=== PATIENT | female | born 2005 | race Caucasian/White ===

== ENCOUNTER 2025-01-19 06:49 | Emergency (ER) | payer BC, SELFPAY ==
--- NOTE | ~2025-01-19 | XR_ITS ---
EXAMINATION: XR ankle LT min 3V DATE: 01/19/2025 08:31 INDICATION: Left ankle injury. Fall. TECHNIQUE: 4 views of left ankle were obtained. COMPARISON: None. FINDINGS: Alignment is normal. No fracture. Joint spaces are normal. IMPRESSION: 1. Normal left ankle. Reviewed, dictated and finalized at location A. IMPRESSION: 1. Normal left ankle.
[2025-01-19 07:02] VITALS: BP 109/79; PULSE 98; RESP 17; TEMP 36.2; O2SAT 100
[2025-01-19 09:13] VITALS: BP 125/85; PULSE 92; RESP 14; O2SAT 100
--- OUTSIDE RECORDS SUMMARY | 2025-01-19 10:12 | XMS_ITS | Clinical Summary ---
Author Organization [facility] Address [address] [place] [address] Phone Care Team Providers Care Solar Designer/Installer Name Role Phone Thania Morales MD Primary Care Provider [phone] Allergies Active Allergy Reactions Criticality Noted Date Comments Amoxicillin Rash Medium 01/25/2017 Sulfa Antibiotics Hives 03/14/2015 Medications escitalopram (LEXAPRO) 20 MG Tablet 1 Active hydrOXYzine (VISTARIL) 25 MG Capsule Take 1 Capsule by mouth 4 times daily as needed for Anxiety. 30 Capsule 3 Active Additional Information Patient not taking.Reported on 06/19/2024 Active Problems No known active problems Immunizations Immunization Administration Dates Next Due Covid-19, Mrna, Lnp-s, Pf, 3 0 Mcg/0.3 Ml Dose ([employer]) 05/30/2021,05/08/2021 DTAP VACCINE 09/19/2006 DTAP-IPV 06/03/2010 DTAP/HEPB/IPV Vaccine 2005,2005,07/24 Hepatitis A, Pediatric, Unsp ecified Formulation 06/29/2007,12/19/2006 Hepatitis B Vaccine, Pediatric/adolescent 2005 Hib Vaccine,unspecified Formulation 08/25,2005,2005,08/10 Human Papillomavirus (HPV) 9 -valent Vaccine 10/08/2020,06/01/2019 Influenza, Injectable, Quadrivalent 10/31/2015 MMRV 06/03/2010,06/14/2006 Meningococcal Vaccine 07/20/2016 Pneumococcal Vaccine Peds - 7 Valent ,2005,2005,08/10 TDAP Vaccine 07/20/2016 Social History Tobacco Use Types Packs/Day Years Used Date Smoking Tobacco: Never Smokeless Tobacco: Never Tobacco Cessation:Counseling Given: Not Answered Alcohol Use Standard Drinks/Week Comments Never 0 (1 standard drink = 0.6 oz pur e alcohol) Sexually Active Control Partners Comments Not Currently Comments No Sex and Gender Information Value Date Recorded Sex Assigned at Not on file Legal Sex Female 11:26 PM CDT Gender Identity Not on file Sexual Orientation Not on file Last Filed Vital Signs Vital Sign Reading Time Taken Comments Blood Pressure 118/74 06/19/2024 5:55 PM CDT Pulse 108 06/19/2024 5:55 PM CDT Temperature 36.8 C (98.2 F) 06/19/2024 5:55 PM CDT Respiratory Rate 18 06/19/2024 5:55 PM CDT Oxygen Saturation 96% 06/19/2024 5:55 PM CDT Inhaled Oxygen Concentration - - Weight 79.4 kg (175 lb) 02/01/2023 11:32 AM CDT Height 165.1 cm (5' 5 ) 11/05/2022 6:16 PM CARVER HAND Body Mass Index - - Plan of Treatment Health Maintenance Due Date Last Done Comments Hepatitis C Virus (HCV) Screening 2005 Influenza Immunization (#1) 2024 08/18/2023, 0 10/31/2015 SARS-COV-2 Immunization ( season) 2024 05/30/2021, 05/08/2021 DTaP/Tdap/Td Immunization (7 - Td or Tdap) 07/20/2026 07/20/2016, 06/03/2010, 09/19/2006, Additional history exists Respiratory Syncytial Virus (RSV) Immunization (Adult) (1 - 1-dose 75+ series) 2080 Hepatitis B Immunization Completed 006, 2005, 2005, Additional history exists Pneumococcal Immunization Combined Aged Out 06/14/2006, 2005, 2005, Additional history exists No longer eligible based on patient's age to complete this topic Hepatitis A Immunization Discontinued 06/29/2007, 11/25 Measles Mumps Rubella (MMR) Immunization Discontinued 06/03/2010, 06/14/2006 Polio (IPV) Immunization Discontinued 010, 2005, 2005, Additional history exists Varicella Immunization Discontinued 06/03/2010, 2005 Human Papillomavirus (HPV) Immunization Completed 10/08/2020, 06/01/2019 Meningococcal Immunization (ACWY) Completed 10/09/2021, 07/20/2016 Meningococcal B Immunization Completed 04/29/2023, 03/15/2023 Rotavirus Immunization Aged Out No lo nger eligible based on patient's age [place] [id number] [address] [facility] [place] [id number] [place] Care Teams Solar Designer/Installer Relationship Specialty Start Date End Date Thania Morales MD [address] [place] [address] [place] [phone] PCP - General Pediatrics 06/16/21
--- OUTSIDE RECORDS SUMMARY | 2025-01-19 10:12 | XMS_ITS | Continuity of Care Document ---
Author Organization [facility] Address [address] [place] [address] Phone Care Team Providers Care Crane Follower Name Role Phone Cristina PT, CMPT, Bryan Unavailable Delmi vailable Procedures Procedure Date THERAPEUTIC EXERCISES MANUAL THERAPY PT EVALUATION THERAPEUTIC EXERCISES Advance Directives Directive Yes / No Effective Date File Name No Information Encounters Encounter Description Practice Location Reason(s) For Visit Diagnoses Date Provider Providers Copied on Encounter [facility], [address] [address], [place], [place], [id number], tel:[phone] Gómez No Information 6 Daljit Adams. [address] [facility], [place], [facility] [place], [place]. tel: [phone] [facility], [address], [place], [place], [id number], tel:[phone] Gómez Pelvic muscle wastingWeaknessBiome chanical lesion, unspecifiedOther specified disorders of urinary systemOther constipation 6 Daljit Adams. [address] [facility], [address], [place], [facility] [place], . tel:[phone] Family History Family Member Type Diagnosis Age At Onset No Information Payers Payer name Insurance type Covered green party ID Authorshawn shelby(s) [facility] [id number] [facility] 2016 Social History Type Description Quantity Date Captured Comments Sex Female Smoking Status No Information Chief Complaint And Reason For Visit No Information Reason For Referral Reason For Referral No Information History Of Present Illness Encounter Date Complaint History Of Prese nt Illness No Information Functional Status Date Functional Assessmen t No Information Instructions Date Instruction Additional Infor mation No Information Assessments Type Assessment Date No Information Patient Care Teams Name Effective Dates (start - stop) Status Members No Information
--- OUTSIDE RECORDS SUMMARY | 2025-01-19 10:12 | XMS_ITS | Clinical Summary ---
Author Organization [facility] Address [address] [place] [address] Care Team Providers Care Soccer Coach Name Role Phone Estela Copeland MD Primary Care Provider [phone] Source Comments [facility],non-owned Affiliates and Associated Physician Practices is amultiple site organization consisting of ambulatory clinics and hospital sitesin [place], [place], [place] and [place]. This disclosure is being madepursuant to the Care Everywhere program and may not contain all information available regarding this patient. Last updated 18.[facility] Allergies Active Allergy Reactions Criticality Noted Date Comments Amoxicillin Rash Medium 01/25/2017 Sulfa Drugs Urticaria 03/14/2015 Medications * Be aware that medications may not be up to date on this document. Alwaysverify current medications with the patient. Medication Sig Dispensed Refills Start Date End Date Status polyethylene glycol 3350 (MIRALAX) powder Take 17 g by mouth 2 times daily Mix with 8-10 oz of water. 850 g 2 01/26/2017 Active nitrofurantoin monohyd macro crystals (MACROBID) 100 MG capsule Take 1 Cap by mouth 2 times daily with morning and evening meal 14 Cap 01/26/2017 Active polyethylene glycol 3350 (MIRALAX) powder Take 17 g by mouth once daily as needed for Constipation Active Lactobacillus Rhamnosus, GG, (CULTURELLE PO) Take 1 Cap by mouth once daily Active Active Problems Problem Noted Date Diagnosed Date Chronic constipation 01/25/2017 Assessment & Plan (01/26/2017 1:16 PM CDT): Assessment: 9 yr hx. Patient has a large stool burden seen on Abd XR. Blood work in the past r/o celiac disease and hypothyroidism as possible medical causes of chronic constipation. Plan: --miralax 17g tid for now --GI consult --consider NG tube placement for clean-out with golytely Assessment & Plan (01/25/2017 6:26 PM CDT): Assessment: 9 yr hx according to mom. Patient has a large stool burden seen on Abd XR and a physical exam that correlates with findings. Encopresis indicates possible fecal impaction. Blood work in the past r/o celiac disease and hypothyroidism as possible medical causes. Patient sees Dr. Holder and has not been compliant with regimen (not taking dulcolax, senna, and only taking miralax every other day as needed ). Patient denies any withholding behavior. She still maintains the sensation to have a BM. Plan: --miralax 17g tid for now --consider NG tube placement for clean-out with golytely Closed fracture of shaft of right radius and uln a 09/18/2013 Resolved Problems Problem Noted Date Diagnosed Date Resolved Date UTI (urinary tract infection) 01/25/2017 02/08/2017 Assessment & Plan (01/26/2017 1:16 PM CDT): Assessment: Frequent UTIs (6 in past 6 months). UA here without many WBC so not clear if UTI is contributing to the pain and fever. Last abx regimen was cefdinir which ended 5 days ago. Patient grown E. Coli in past cxs. Frequent UTIs most likely due to patient's chronic constipation. Plan: --Obtain old records to get details of these UTI with cell counts, colony counts as well as sensitivities of organisms grown. --U/A and urine culture pending --IV ceftriaxone until speciation and susceptibilities are known --regular diet --I&Os --VS q8hrs Assessment & Plan (01/25/2017 6:17 PM CDT): Anneliese White is a 11 y.o. female w/ PMHx of chronic constipation who presents with fever, abdominal pain, UTI. Assessment: Frequent UTIs (6 in past 6 months). Last abx regimen was cefdinir which ended 5 days ago. New U/A @ OSH was still pos for UTI. Patient grown E. Coli in past cxs. Frequent UTIs most likely due to patient's chronic constipation. Plan: --admit to nichole Guzman team --U/A and urine culture --IV ceftriaxone until speciation and susceptibilities are known --regular diet --I&Os --VS q8hrs --obtain urine cx from OSH Dehydration 01/25/2017 02/08/2017 Assessment & Plan (01/26/2017 1:15 PM CDT): Assessment: Patient a bit dry on exam per HO. Not consistently drinking water. Normal BMP. Plan: --mIVF Assessment & Plan (01/25/2017 5:15 PM CDT): Assessment: Patient a bit dry on exam. Not consistently drinking water. Plan: --mIVF --BMP Constipation 03/14/2015 04/11/2015 UTI (urinary tract infection) 03/14/2015 03/28/2015 Family History Medical History Relation Name Comments Celiac Disease Other Cousin Relation Name Status Comments Other Social History Tobacco Use Types Packs/Day Years Used Date Smoking Tobacco: Never Alcohol Use Standard Drinks/Week Comments Not Asked 0 (1 standard drink = 0.6 oz pur e alcohol) Sex and Gender Information Value Date Recorded Sex Assigned at Not on file Gender Identity Not on file Sexual Orientation Not on file Last Filed Vital Signs Vital Sign Reading Time Taken Comments Blood Pressure 119/72 01/26/2017 4:42 PM CDT Pulse 94 01/26/2017 4:42 PM CDT Temperature 37 C (98.6 F) 01/26/2017 4:42 PM CDT Respiratory Rate 20 01/26/2017 4:42 PM CDT Oxygen Saturation 97% 09/14/2013 2:38 AM METAL ALLOY SCIENTIST Inhaled Oxygen Concentration - - Weight 44.1 kg (97 lb 3.6 oz) 01/25/2017 4:10 PM CDT Height 151.2 cm (4' 11.53 ) 01/25/2017 4:10 PM C DT Body Mass Index 19.29 01/25/2017 4:10 PM CDT Body Mass Index Percentile 68.90% 01/25/2017 4:1 0 PM CDT Growth Chart: CDC (Girls, 2- 20 Years) Plan of Treatment Health Maintenance Due Date Last Done Comments HIV SCREENING 2020 HPV VACCINE (1 - 3-dose series) 2020 CHLAMYDIA/GONORRHEA SCREENING 2021 MENINGOCOCCAL (Group B) VACC INE SHARED DECISION-MAKING (1 of 2 - Standard) 2021 HEPATITIS C SCREENING 06/05/2023 DTAP/TDAP/TD VACCINES (1 - Tdap) 2024 HEPATITIS B VACCINE (1 of 3 - 19+ 3-dose series) 2024 COVID-19 VACCINE (1 - 2023-2 5 season) 2024 INFLUENZA VACCINE (#1) 2024 DEPRESSION SCREENING 10/24/2024 ZOSTER VACCINE (1 of 2) 2055 HIB VACCINE Aged Out No longer eligi ble based on patient's age to complete this topic MENINGOCOCCAL GROUPS A/C/Y/W VACCINE Aged Out No longer eligible b ased on patient's age to complete this topic PNEUMOCOCCAL VACCINE Aged Out No long er eligible based on patient's age to complete this topic Advance Directives * Full Code (Latest Code Status on File) Date Activated Date Inactivated Comments 01/25/2017 3:27 PM 01/26/2017 8:42 PM Care Teams Soccer Coach Relationship Specialty Start Date End Date Estela Copeland MD PCP - General Pediatrics 09/13/13
--- OUTSIDE RECORDS SUMMARY | 2025-01-19 10:12 | XMS_ITS | Clinical Summary ---
Author Organization [facility] Address [address] [place] [address] Care Team Providers Care Rate Analyst Name Role Phone Non-Staff, Provider Primary Care Provider Miriam giordano Allergies Active Allergy Reactions Criticality Noted Date Comments Sulfamethoxazole-Trimethoprim Hives 2022 Medications escitalopram (LEXAPRO) 10 MG tablet Take 1 tablet (10 mg total) by mouth daily. Active isosorbide dinitrate (ISORDIL) 10 MG tablet Take 3 tablets (30 mg total) by mouth 3 (three) times daily. Active hydrOXYzine (ATARAX) 10 MG tablet Take 2 tablets (20 mg total) by mouth 3 (three) times daily as needed for Itching. Active traMADol (ULTRAM) 50 MG tabletIndicatio ns:Acute Pain < 7 Day Supply Indications: Acute Pain < 7 Day Supply 1-2 every 6 hours as needed for pain 20 tablet 08/06/2023 Active Social History Tobacco Use Types Packs/Day Years Used Date Smoking Tobacco: Never Smokeless Tobacco: Never Tobacco Cessation:Counseling Given: Not Answered Comments Unknown Sex and Gender Information Value Date Recorded Sex Assigned at Not on file Legal Sex Female 1:09 PM CDT Gender Identity Not on file Sexual Orientation Not on file Last Filed Vital Signs Vital Sign Reading Time Taken Comments Blood Pressure 122/78 08/06/2023 1:21 PM CDT Pulse 88 08/06/2023 1:21 PM CDT Temperature 36.8 C (98.2 F) 08/06/2023 1:21 PM CDT Respiratory Rate 16 08/06/2023 1:21 PM CDT Oxygen Saturation 100% 08/06/2023 1:21 PM CDT Inhaled Oxygen Concentration - - Weight 70.3 kg (155 lb) 08/06/2023 1:22 PM CDT Height 162.6 cm (5' 4 ) 08/06/2023 1:25 PM CDT Body Mass Index 26.61 08/06/2023 1:22 PM CDT Body Mass Index Percentile 88.08% 08/06/2023 1:2 5 PM CDT Growth Chart: [facility] (Girls, 2- 20 Years) Plan of Treatment Health Maintenance Due Date Last Done Comments Annual Physical 2008 Chlamydia Screening Females ages 16-24 2021 Hepatitis C 2023 COVID-19 Vaccine ( season) 2024 05/30/2021, 05/08/2021 Influenza Adult (#1) 2024 10/31/2015 DTaP, Tdap and Td Vaccines (7 - Td or Tdap) 07/20/2026 07/20/2016, 06/03/2010, 09/19/2006, Additional history exists Hepatitis B Vaccines Completed 2005, 2005, 2005, Additional history exists Pneumococcal Vaccine: Pediatrics (0 to 5 Years) and At-Risk Patients (6 to 64 Years) Aged Out 06/14/2006, 2005, 2005, Additional history exists No longer eligible based on patient's age to complete this topic HPV Vaccines Completed 10/08/2020, 06/01/2019 Meningococcal Vaccine Completed 10/09/2021, 016 Meningococcal B Vaccine Completed 04/29/2023, 03/15 RSV Immunizations Under 20 Months Aged Out No longer eligible based on patient's age to complete this topic Insurance [facility] Care Teams Rate Analyst Relationship Specialty Start Date End Date Non-Staff, Provider PCP - General UNKNOWN PHYSICIAN SPECIALTY 08/06/23
--- NOTE | 2025-01-19 10:22 | ED.LOWEXIN ---
HPI - Extremity Injury (Lower) General Chief Complaint: Extremity Injury, Lower Stated Complaint: fell through stairs left ankle injury Time Seen by Provider: 01/19/25 10:02 History of Present Illness HPI Narrative: 19-year-old otherwise healthy female presenting to the emergency room with right ankle pain. She states that she was stepping down a staircase that had rotted out would and she accidentally pressure foot through the ground. She had a hyperflexion type injury. She was able to extricate herself and ambulate but having some pain on her dorsum of the right ankle. Denies any significant swelling. Did not take any pain prior to arrival. She denies back in triage. Was otherwise in her normal state of health, denies any other complaints, no neuropathy, weakness in limb, sensory deficits, other trauma. Related Data Allergies Allergy/AdvReac Type Severity Reaction Status Date / Time Sulfa (Sulfonamide Allergy Rash Verified 01/19/25 10:16 Antibiotics) Review of Systems Review of Systems: As reviewed above in HPI Exam Narrative: GENERAL: [Well-appearing, well-nourished, and in no acute distress.] HEAD: [Normocephalic, atraumatic.] EYES: [PERRLA and EOMI.] ENT: Nares clear, no rhinorrhea or epistaxis. Mucous membranes moist. NECK: Supple. CHEST: [Clear to auscultation. No respiratory distress.] HEART: [Regular rate and rhythm]. No murmur heard. [Normal peripheral pulses.] ABDOMEN: [Soft, nondistended], [nontender], [No rigidity or guarding] EXTREMITIES: Normal range of motion. [No edema.] Tenderness to palpation of the dorsal lateral left ankle, no overt swelling. Plantar dorsiflexion full, plantar flexion elicits pain over the dorsal lateral left ankle distal to the malleolus. No overlying step-offs. No overlying skin changes. No plantar ecchymosis. SKIN: Warm, dry, no rash. NEURO: [No focal deficits]. Alert and oriented [x3.] PSYCH: [Normal mood and affect.] Course Vital Signs Vital signs: Vital Signs Temperature 36.2 C L 01/19/25 07:02 Pulse Rate 98 01/19/25 07:02 Respiratory Rate 17 01/19/25 07:02 Blood Pressure 109/79 01/19/25 07:02 Pulse Oximetry 100 03/29/25 07:02 Oxygen Delivery Room Air 01/19/25 07:02 Temperature 36.2 C L 01/19/25 07:02 Pulse Rate 92 01/19/25 09:13 Respiratory Rate 14 01/19/25 09:13 Blood Pressure 125/85 01/19/25 09:13 Pulse Oximetry 100 01/19/25 09:13 Oxygen Delivery Room Air 01/19/25 07:02 MDM - Extremity Injury (Lower) MDM Narrative Medical decision making narrative: 19-year-old otherwise healthy female presenting with signs and symptoms of a left ankle injury/sprain. No obvious external evidence of trauma but she does have tenderness over the dorsal lateral left ankle distal to the lateral malleolus. Normal vital signs, 2+ pedal pulses, warm extremities good cap refill. Suspicion presently is for a ankle sprain, ligamentous disruption, less likely occult fracture or lateral malleolar fracture. X-rays were obtained and unremarkable. She was provided an Vini wrap and Toradol for pain control and crutches for ambulation assistance. She was sent home with Tylenol and ibuprofen. Patient is comfortable with discharge plan and safely discharged at this time. Medical Records Attestation: I reviewed the patient's medical records. Imaging Data Attestation: I personally reviewed and interpreted this imaging study as follows: My impression: Impressions Ankle X-Ray 01/19/25 08:36 IMPRESSION: 1. Normal left ankle. Discharge Plan Discharge Clinical Impression: Ankle sprain and strain Patient Disposition: Home, Self-Care Condition: Stable Instructions: Antibiotic Form, Ankle Sprain (DC) Patient Language: Swedish Prescriptions: New ibuprofen 800 mg tablet 800 mg PO TID PRN (Reason: pain) Qty: 30 0RF acetaminophen [Tylenol Extra Strength] 500 mg tablet 1,000 mg PO TID PRN (Reason: pain) Qty: 30 0RF Follow-up/Referrals: PHYSICIAN,CALENDER LET OFF OPERATOR [Primary Care Provider] - Time of Disposition: 10:24
[2025-01-19] MEDS: KETOROLAC 10 MG TABLET PO (10:23)
== END 2025-01-19 10:51 | disposition home or self-care (01) ==
PROVIDERS: Emergency Provider Student in an Organized Health Care Education/Training Program
DX: S93.402A Sprain of unspecified ligament of left ankle, initial encounter (principal); S96.912A Strain of unspecified muscle and tendon at ankle and foot level, left foot, initial encounter; X50.9XXA Other and unspecified overexertion or strenuous movements or postures, initial encounter
CPT/HCPCS: 73610; 99283; A9270